=== PATIENT | male | born 1995 | race Caucasian/White ===

== ENCOUNTER 2025-08-15 20:15 | Emergency (ER) | payer OTHER, SELFPAY ==
[2025-08-15 20:17] VITALS: BP 164/84; PULSE 80; RESP 16; TEMP 36.8; O2SAT 99; BMI 31.5
--- NOTE | 2025-08-15 20:27 | EKG12_ITS ---
Test Reason : DYSRHYTHMIA Blood Pressure : */* mmHG Vent. Rate : 80 BPM Atrial Rate : 80 BPM P-R Int : 146 ms QRS Dur : 86 ms QT Int : 352 ms P-R-T Axes : 25 63 42 degrees QTcB Int : 405 ms Normal sinus rhythm Nonspecific T wave abnormality Abnormal ECG Confirmed by CAROLYNN MENDEZ, SHAWNA ([id number]), editor continuity and script ANNALISA ANDREW ([id number]) on 08/19/2025 8:36:36 AM Referred By: Confirmed By: SHAWNA PRADHAN MD
--- NOTE | 2025-08-15 20:27 | EX.ED.DYSGE1 ---
HPI History of Present Illness Chief Complaint: Dizziness Narrative Narrative: Patient is a 30-year-old male with no known significant past medical history who presents to the emergency department with a chief complaint of lightheadedness and not feeling well. 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 He states that he was driving down to [place] and started to feel unwell he states that he had nausea vomiting diarrhea on Tuesday and Tuesday which then resolved by Tuesday. He states that he is starting to feel better however then again yesterday he started to feel lightheaded and unwell again. In the triage noted states that he is dizzy after clarification and he is not dizzy. He denies any history of blood clots. PFSH PFSH Medical History no medical history Home Medications Medication Instructions Recorded Last Taken Type ondansetron 4 mg disintegrating 4 mg PO Q6H PRN nausea and 08/15/25 Unknown Rx tablet vomiting #20 tabs Allergy/AdvReac Type Severity Reaction Status Date / Time No Known Allergies Allergy Verified 08/15/25 20:18 Family History no significant family his Surgical History no surgical history Social History Smoking Status: Former smoker ROS ROS ED ROS Narrative Constitutional: Denies any fevers, chills, headaches Eyes: Denies double vision Cardiovascular: Complains of some chest pressure denies palpitations Respiratory: Denies coughing wheezing Abdomen: States that he had nausea vomiting diarrhea as noted above : Denies any urinary symptoms Neurological: Denies any numbness, weakness, tingling Musculoskeletal: Denies back pain Skin: Denies any rashes or lesions EXAM Physical Exam Narrative Exam Narrative: General: Patient was lying in bed rest comfortably did not appear to be acute distress Head: Atraumatic, normocephalic Eyes: PERRL bilaterally, EOMI bilaterally, no conjunctival injection noted, no horizontal or vertical nystagmus noted Neck: Soft, supple, trachea midline Cardiovascular: Regular rate and rhythm Respiratory: Clear to auscultation bilaterally Abdomen: Soft, nondistended, nontender to palpation Extremities: +5/5 strength noted in the bilateral upper and lower extremities, radial pulses +2/4 in the bilateral extremities Neurological: Patient following commands knew that he was at [facility] year 2024 NIH of 0 GCS 15 patient completed finger-nose testing bilaterally, difficulty Skin: Warm, dry, intact no rashes or lesions noted Const Vital Signs: 08/15/25 20:17 08/15/25 20:33 08/15/25 22:16 Temperature 98.2 F Temperature Source Temporal Pulse Rate 80 86 Respiratory Rate 16 Blood Pressure 164/84 H 127/56 H Blood Pressure Mean 110 79 Pulse Ox 99 100 98 Oxygen Delivery Method Room Air Room Air Room Air MDM MDM MDM Narrative Medical decision making narrative: Patient is a 30-year-old male who presents to the emergency department the chief complaint of lightheadedness and not feeling well overall. On the differential diagnose includes but not limited to ACS, pneumonia, pneumothorax, pulmonary embolism. Once workup is obtained and reviewed he will be reevaluated. Patient was given 2 L of IV fluid bolus. Patient CBC reviewed showed a white blood count is normal at 6.3, hemoglobin was stable 12.7, platelet count was noted to be 202. Patient sodium normal 140, potassium 3.8, creatinine was 0.93. Patient's troponin was noted to be normal at less than 6, delta troponin less than 6, EKG showed sinus rhythm with a rate of 80 bpm PA interval 146. Patient's proBNP was normal at less than 36, TSH normal 1.65. Patient CTA of his chest showed no evidence of pulmonary embolism. Patient was ambulated here in the emergency department tolerated this well no hypoxia no tachycardia. On reevaluation the patient he would like to go home at this point time. He is encouraged to return with worsening symptoms or concerns otherwise he is advised to follow-up his doctor in the outpatient setting all question concerns answered he is discharged home in stable condition. Significant other at bedside is also agreeable with this plan. Lab Data Labs: Laboratory Results - last 24 hr 08/15/25 08/15/25 20:38 22:25 WBC 6.3 RBC 4.58 L Hgb 12.7 L Hct 38.3 L MCV 83.6 MCH 27.7 MCHC 33.2 RDW Std Deviation 36.2 RDW Coeff of [place] 12.0 Plt Count 202 MPV 9.8 Immature Gran % (Auto) 0.200 Neut % (Auto) 47.0 Lymph % (Auto) 43.3 H [place] % (Auto) 6.5 Eos % (Auto) 2.7 Baso % (Auto) 0.3 Absolute Neuts (auto) 3.0 Absolute Lymphs (auto) 2.73 Nucleated RBC % 0 Sodium 140 Potassium 3.8 Chloride 103 Carbon Dioxide 25.6 Anion Gap 11 BUN 11 Creatinine 0.93 Estim Creat Clear Calc 137.53 Est GFR (MDRD) Non-Af 113 BUN/Creatinine Ratio 11.4 Glucose 145 H Calcium 9.7 Magnesium 2.1 Troponin T High Sens < 6 Troponin T Hi Sens 2 Hr < 6 NT pro BNP II < 36 TSH 1.650 Radiography Diagnostic Testing: Clinical Impression(s) from Imaging Studies Chest CTA 08/15/25 20:40 IMPRESSION: No pulmonary embolism. No acute chest abnormality. Reading Location: [facility] Discharge Plan Triage Chief Complaint: Dizziness ED Provider: Jim Bateman Dx/Rx/DC Orders Clinical Impression: Light-headedness, Nausea & vomiting, Diarrhea Prescriptions: New ondansetron 4 mg tablet,disintegrating 4 mg PO Q6H PRN (Reason: nausea and vomiting) Qty: 20 0RF Primary Care Provider: Ron Flores Referrals: Ron Flores MD [Primary Care Provider, Family Practice] Activity Restrictions/Additional Instructions: Your blood work did not show any acute findings your CT of your chest did not show any evidence of blood clots. Follow-up your doctor in outpatient setting. Return with worsening symptoms or any concerns. Continue to push fluids. Print Language: [place] Disposition Disposition: Home, Self Care
[2025-08-15] MEDS: 0.9% Normal Saline (1000mL) 1,000 ML 999 ML IV ×2 (20:32→21:43)
[2025-08-15 20:33] VITALS: O2SAT 100
--- NOTE | 2025-08-15 20:40 | CT_ITS ---
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 CONTRAST: Isovue 370 VOLUME: 100 mL One or more dose reduction techniques were used (e.g., Automated exposure control, adjustment of the mA and/or kV according to patient size, use of iterative reconstruction technique). RADIATION DOSE SUMMARY: CTDlvol: 16+ 15 mGy DLP: 548 mGycm FINDINGS: Peripheral soft tissues are unremarkable. Degenerative changes of the spine. The thyroid is unremarkable. The esophagus is normal in caliber. The upper abdomen is unremarkable. Thoracic aorta is normal in caliber. No mediastinal lymphadenopathy. No pulmonary artery filling defects. The lungs are clear. CT/CTA Chest W/WO Contrast IMPRESSION: No pulmonary embolism. No acute chest abnormality. Reading Location: [id number]
[2025-08-15 20:48] LABS: Hematocrit 38.3 % (40-54); Hemoglobin 12.7 g/dL (13.0-16.5); Immature Granulocytes Count 0.010 X10^3/uL (0.0-0.0); Mean Corp Hgb Conc 33.2 g/dL (32-36); Mean Corpuscular Volume 83.6 fL (80-94); Mean Platelet Vol. 9.8 fl (6.2-12.0); NRBC Flagged by Analyzer 0 % (0-5); Platelet Count 202 K/mm3 (150-450); RBC Distribution Width CV 12.0 % (11.6-14.6); RBC Distribution Width SD 36.2 fl (35.1-43.9); Red Blood Count 4.58 M/mm3 (4.6-6.2); White Blood Count 6.3 K/mm3 (4.4-11.0)
--- OUTSIDE RECORDS SUMMARY | 2025-08-15 21:12 | XMS RPT_ITS | CCD ---
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 Name Role Phone Unavailable Primary Care Provider TAVON Elise Attending TAVON [place] [facility] TAVON [place] Referring TAVON [place] [facility] UnavailTAVON [place] Referring TAVON [facility] Unavailab ba Medications Completed/Discontinued Medications Medication Drug Class(es) Dates Sig (Normalized) Sig (Original) benzoyl peroxide 0.05 mg/mg / erythromycin 0.03 mg/mg topical gel (1 source) Macrolide, Macrolide Antimicrobial Start: 11-03-2016 Erythromycin-Jesús zoyl Peroxide gel APPLY TO AFFECTED AREA AT BEDTIME 46.6 g 3 11/03/2016 Active Comment on above: APPLY TO AFFECTED AR EA AT BEDTIME ibuprofen 600 mg oral tablet (1 source) Nonsteroidal Anti-inflammatory Drug Start: 06-07-2014 take 1 tablet by mouth every six hours as needed ibuprofen 600 mg tablet Take 1 tablet by mouth every 6 hours as needed for Pain. 30 tablet 0 06/07/2014 Active Comment on above: Take 1 tablet by dede every 6 hours as needed for Pain. lidocaine hydrochloride 20 mg/ml mucous membrane topical solution (1 source) Antiarrhythmic, Amide Local Anesthetic Start: 01-27-2016 lidocaine viscous (LIDOCAINE VISCOUS) 2 % solution Indications: Sore throat Gargle and spit 10-15mLs every 3-4 hours as need for throat discomfort. 120 mL 0 01/27/2016 Active Comment on above: Gargle and spit 10-1 5mLs every 3-4 hours as need for throat discomfort. Problems Active Problems Problem Classification Problem Date Documented Da te Episodic/Chronic Alcohol-related disorders (1 source) Alcohol abuse, in remission; Translations: [History of alcohol abuse] Onset: 06-22-2025 Chronic Other nutritional; endocrine; and metabolic disorders (1 source) Body mass index (BMI) 31.0-31.9, adult; Translations: [Class 1 obesity with body mass index (BMI) of 31.0 to 31.9 in adult, unspecified obesity type, unspecified whether serious comorbidity present] Onset: 06-22-2025 Chronic Screening and history of mental health and substance abuse codes (1 source) Personal history of nicotine dependence; Translations: [Personal history of nicotine dependence] Onset: 06-22-2025 Episodic Thyroid disorders (2 sources) Nontoxic multinodular goiter; Translations: [Multiple thyroid nodules] Onset: 06-22-2025 Chronic Unclassified (1 source) Class 1 obesity with body mass index (BMI) of 31.0 to 31.9 in adult, unspecified obesity type, unspecified whether serious comorbidity present; Translations: [Class 1 obesity with body mass index (BMI) of 31.0 to 31.9 in adult, unspecified obesity type, unspecified whether serious comorbidity present] Onset: 06-22-2025 Past or Other Problems Problem Classification Problem Date Documented Da te Episodic/Chronic Appendicitis and other appendiceal conditions (1 source) Acute appendicitis; Translations: [Unspecified acute appendicitis] Onset: 04-11-2008 04-11-2008 Episodic Other skin disorders (1 source) Acne; Translations: [Acne, unspecified] Onset: 08-07-2012 08-07-2012 Episodic Superficial injury; contusion (1 source) Foreign body in hand; Translations: [Superficial foreign body of unspecified hand, initial encounter] Onset: 01-09-2014 01-09-2014 Episodic Results Test Name Value Interpretation Reference Range Facil ity US THYROID/PARATHYROIDon US THYROID/PARATHYROID * * *Final Report* * * DATE OF EXAM: Jul 06 2025 12:16PM MDU 1048 - US THYROID/PARATHYROID / PROCEDURE REASON: E04.2-Multiple thyroid nodules * * * * Physician Interpretation * * * * EXAMINATION: THYROID ULTRASOUND CLINICAL HISTORY: Multiple thyroid nodules TECHNIQUE: Sonography and Doppler imaging of the thyroid was performed. Images were obtained and stored in a permanent archive. MQ: UST_1 COMPARISON: Ultrasound thyroid 02/16/2021 RESULT: Right Lobe: 5.2 cm x 1.5 cm x 1.3 cm; homogeneous echogenicity, expected vascular flow. Left Lobe: 4.8 cm x 1.5 cm x 1.3 cm; homogeneous echogenicity, expected vascular flow. Isthmus: 0.4 cm The most suspicious thyroid nodule(s) (up to four) as below: NODULE 1: Location: Right mid Size: 1.0 x 0.9 x 0.6 cm. Previously 1.0 x 0.9 x 0.7 cm Characteristics: Composition: Solid or almost completely solid, 2 points Echogenicity: Hypoechoic, 2 points Shape: Zkpgo-zrar-mohr, 0 points Margin: Smooth, 0 points Echogenic foci (add points for all that apply): None, 0 points Internal vascularity: present Interval growth: Stable TI-RADS Category: TR4 ACR Recommendation: TI-RADS 4 nodule. Follow up imaging in 1, 2, 3 and 5 years is advised. There is been 1 other nodule less than 1 centimeter in size noted. No follow-up for this nodule is recommended IMPRESSION: Thyroid nodule(s) is/are present. Surveillance imaging is recommended for one or more nodules as detailed in the synoptic report. TI-RADS Category: TR4 ACR Recommendation: TI-RADS 4 nodule. Follow up imaging in 1, 2, 3 and 5 years is advised. It has already been 4 years since previous study ACR recommendations are strictly based on the size and imaging appearance at the time of the exam and do not consider stability or previous biopsy results. Senior Php Software Developer: LEVON Transcribe Date/Time: Jul 10 2025 4:36P Dictated by : ZEN WARREN DO This examination was interpreted and the report reviewed and electronically signed by: ZEN WARREN DO on Jul 10 2025 4:43PM EST [id number] N Normal [facility] CBC W Auto Differential pane l (Bld)on 06-22-2025 Basophils (Bld) [#/Vol] 10*3/uL Normal <0.11 [facility] Comment on above: Order Comment: Speci men Type: BLOOD SPECIMEN Ordering Facility: [facility] Address: [address] [place] [address] Performed By: #### 5 7021-8 #### [facility] CLIA [id number] [address] [place] [address] [place] Basophils/100 WBC (Bld) 0.4 % Normal [facility] Comment on above: Order Comment: Speci men Type: BLOOD SPECIMEN Ordering Facility: [facility] Address: [address] [place] [address] Performed By: #### 5 7021-8 #### [facility] CLIA [id number] [address] [place] [address] [place] Differential cell count method Nom (Bld) Auto Normal [facility] Comment on above: Order Comment: Speci men Type: BLOOD SPECIMEN Ordering Facility: [facility] Address: [address] [place] [address] Performed By: #### 5 7021-8 #### [facility] CLIA [id number] [address] [place] [address] [place] Eosinophils (Bld) [#/Vol] 0.09 10*3/uL Normal <0.46 [facility] Comment on above: Order Comment: Speci men Type: BLOOD SPECIMEN Ordering Facility: [facility] Address: [address] [place] [address] Performed By: #### 5 7021-8 #### [facility] CLIA [id number] [address] [place] [address] [place] Eosinophils/100 WBC (Bld) 2.0 % Normal [facility] Comment on above: Order Comment: Speci men Type: BLOOD SPECIMEN Ordering Facility: [facility] Address: [address] [place] [address] Performed By: #### 5 7021-8 #### [facility] CLIA [id number] [address] [place] [address] [place] Erythrocyte distribution width (RBC) [Ratio] 11.9 % Normal 11.5-15.0 [facility] Comment on above: Order Comment: Speci men Type: BLOOD SPECIMEN Ordering Facility: [facility] Address: [address] [place] [address] Performed By: #### 5 7021-8 #### [facility] CLIA [id number] [address] [place] [address] [place] Hematocrit (Bld) [Volume fraction] 43.3 % Normal 39.0-51.0 [facility] Comment on above: Order Comment: Speci men Type: BLOOD SPECIMEN Ordering Facility: [facility] Address: [address] [place] [address] Performed By: #### 5 7021-8 #### [facility] CLIA [id number] [address] [place] [address] [place] Hemoglobin (Bld) [Mass/Vol] 14.1 g/dL Normal 13.0-17.0 [facility] Comment on above: Order Comment: Speci men Type: BLOOD SPECIMEN Ordering Facility: [facility] Address: [address] [place] [address] Performed By: #### 5 7021-8 #### [facility] CLIA [id number] [address] [place] [address] [place] Immature granulocytes (Bld) [#/Vol] 10*3/uL Normal <0.10 [facility] Comment on above: Order Comment: Speci men Type: BLOOD SPECIMEN Ordering Facility: [facility] Address: [address] [place] [address] Performed By: #### 5 7021-8 #### [facility] CLIA [id number] [address] [place] [address] [place] Immature granulocytes/100 WBC (Bld) 0.2 % Normal [facility] Comment on above: Order Comment: Speci men Type: BLOOD SPECIMEN Ordering Facility: [facility] Address: [address] [place] [address] Performed By: #### 5 7021-8 #### [facility] CLIA [id number] [address] [place] [address] [place] Lymphocytes (Bld) [#/Vol] 1.52 10*3/uL Normal 1.00-4.00 [facility] Comment on above: Order Comment: Speci men Type: BLOOD SPECIMEN Ordering Facility: [facility] Address: [address] [place] [address] Performed By: #### 5 7021-8 #### [facility] CLIA [id number] [address] [place] [address] [place] Lymphocytes/100 WBC (Bld) 33.0 % Normal [facility] Comment on above: Order Comment: Speci men Type: BLOOD SPECIMEN Ordering Facility: [facility] Address: [address] [place] [address] Performed By: #### 5 7021-8 #### [facility] CLIA [id number] [address] [place] [address] [place] MCH (RBC) [Entitic mass] 27.5 pg Normal 26.0-34.0 [facility] Comment on above: Order Comment: Speci men Type: BLOOD SPECIMEN Ordering Facility: [facility] Address: [address] [place] [address] Performed By: #### 5 7021-8 #### [facility] CLIA [id number] [address] [place] [address] [place] MCHC (RBC) [Mass/Vol] 32.6 g/dL Normal 30.5-36.0 [facility] Comment on above: Order Comment: Speci men Type: BLOOD SPECIMEN Ordering Facility: [facility] Address: [address] [place] [address] Performed By: #### 5 7021-8 #### [facility] CLIA [id number] [address] [place] [address] [place] MCV (RBC) [Entitic vol] 84.6 fL Normal 80.0-100.0 [facility] Comment on above: Order Comment: Speci men Type: BLOOD SPECIMEN Ordering Facility: [facility] Address: [address] [place] [address] Performed By: #### 5 7021-8 #### [facility] CLIA [id number] [address] [place] [address] [place] Monocytes (Bld) [#/Vol] 0.44 10*3/uL Normal <0.87 [facility] Comment on above: Order Comment: Speci men Type: BLOOD SPECIMEN Ordering Facility: [facility] Address: [address] [place] [address] Performed By: #### 5 7021-8 #### [facility] CLIA [id number] [address] [place] [address] [place] Monocytes/100 WBC (Bld) 9.5 % Normal [facility] Comment on above: Order Comment: Speci men Type: BLOOD SPECIMEN Ordering Facility: [facility] Address: [address] [place] [address] Performed By: #### 5 7021-8 #### [facility] CLIA [id number] [address] [place] [address] [place] Neutrophils (Bld) [#/Vol] 2.53 10*3/uL Normal 1.45-7.50 [facility] Comment on above: Order Comment: Speci men Type: BLOOD SPECIMEN Ordering Facility: [facility] Address: [address] [place] [address] Performed By: #### 5 7021-8 #### [facility] CLIA [id number] [address] [place] [address] [place] Neutrophils/100 WBC (Bld) 54.9 % Normal [facility] Comment on above: Order Comment: Speci men Type: BLOOD SPECIMEN Ordering Facility: [facility] Address: [address] [place] [address] Performed By: #### 5 7021-8 #### [facility] CLIA [id number] [address] [place] [address] [place] Nucleated RBC (Bld) [#/Vol] 10*3/uL Normal <0.01 [facility] Comment on above: Order Comment: Speci men Type: BLOOD SPECIMEN Ordering Facility: [facility] Address: [address] [place] [address] Performed By: #### 5 7021-8 #### [facility] CLIA [id number] [address] [place] [address] [place] Nucleated RBC/100 WBC (Bld) [Ratio] 0.0 /100 WBC Normal [facility] Comment on above: Order Comment: Speci men Type: BLOOD SPECIMEN Ordering Facility: [facility] Address: [address] [place] [address] Performed By: #### 5 7021-8 #### [facility] CLIA [id number] [address] [place] [address] [place] Platelet mean volume (Bld) [Entitic vol] 10.8 fL Normal 9.0-12.7 [facility] Comment on above: Order Comment: Speci men Type: BLOOD SPECIMEN Ordering Facility: [facility] Address: [address] [place] [address] Performed By: #### 5 7021-8 #### [facility] CLIA [id number] [address] [place] [address] [place] Platelets (Bld) [#/Vol] 233 10*3/uL Normal 150-400 [facility] Comment on above: Order Comment: Speci men Type: BLOOD SPECIMEN Ordering Facility: [facility] Address: [address] [place] [address] Performed By: #### 5 7021-8 #### [facility] CLIA [id number] [address] [place] [address] [place] RBC (Bld) [#/Vol] 5.12 10*6/uL Normal 4.20-6.00 [facility] Comment on above: Order Comment: Speci men Type: BLOOD SPECIMEN Ordering Facility: [facility] Address: [address] [place] [address] Performed By: #### 5 7021-8 #### [facility] CLIA [id number] [address] [place] [address] [place] WBC (Bld) [#/Vol] 4.61 10*3/uL Normal 3.70-11.00 [facility] Comment on above: Order Comment: Speci men Type: BLOOD SPECIMEN Ordering Facility: [facility] Address: [address] [place] [address] Performed By: #### 5 7021-8 #### [facility] CLIA [id number] [address] [place] [address] OF [place] CNOVon 06-22-2025 CNOV Office Visit (FAMPWS ) ANDREA MCDONALD ([id number]) 1995 M Date Time Provider Department 06/22/25 8:20 AM [facility] During your visit today, we recorded the following information about you: Pulse Respiration Blood pressure Weight 71/minute 18/minute 126/78 97.8 kg Height 1.761 m Tavon Flores MD 06/22/2025 9:21 AM Signed Chief Complaint Patient presents with: Physical Recording using [employer] software for draft documentation of the visit was discussed with the patient/authorized packaging sales representative; all questions welcomed and answered. Patient/authorized packaging sales representative agreed to proceed HPI Andrea Mcdonald is a 30 year old male who presents here today for Above Complaints. Patient has been in good health without recent hospitalizations, ER visits. No concerns today. Annual Wellness Exam: - No new medical conditions or surgeries since last visit. - Family history: - Paternal grandmother had cancer. - Paternal grandfather had heart disease. - Andrea denies taking any medications. - No recent HIV or hepatitis C screening. Refusing screening today. - Andrea declined flu shot, tetanus booster, and HPV vaccine. - Overdue for thyroid ultrasound; previous ultrasound in 2020 showed right-sided nodules. - Weight has increased 5 lbs since last visit in 2022. - Andrea is attempting to eat healthier; no specific diet followed. - Andrea denies regular exercise. - Former smoker, quit in August 2021 after smoking 1 pack per day for 5 years. - Former heavy alcohol use, quit 7 years ago. - Andrea denies use of tobacco, vaping, or e-cigarettes. - Andrea denies use of other drugs. 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 - Lives with and father. Past medical history, appointments, medications, allergies reviewed. Previous Medical History PAST MEDICAL HISTORY Diagnosis Date Acne 08/07/2012 History of alcohol abuse History of tobacco use Multiple thyroid nodules 02/16/2021 repeat US in 1, 2, 3 and 5 years. Obesity Previous Surgical History PAST SURGICAL HISTORY Procedure Laterality Date APPENDECTOMY RPR UMBILICAL HERNIA < 5 YRS REDUCIBLE Hernia repair, umbilical <5yr Family History FAMILY HISTORY Problem Relation Age of Onset No Known Problems Mother No Known Problems Father No Known Problems Sister No Known Problems Brother No Known Problems Maternal Grandmother No Known Problems Maternal Grandfather Cancer Paternal Grandmother Heart disease Paternal Grandfather Patient Allergies ALLERGIES No Known Allergies Current Medications No current outpatient medications on file prior to visit. No current facility-administered medications on file prior to visit. Social History SOCIAL HISTORY[1] Review of Symptoms REVIEW OF SYSTEMS GENERAL: No weight loss, malaise or fevers HEENT: Negative for frequent or significant headaches, No changes in hearing or vision, no nose bleeds or other nasal problems NECK: Negative for lumps, goiter, pain and significant neck swelling RESPIRATORY: Negative for cough, hemoptysis, wheezing, COPD, dyspnea or shortness of breath CARDIOVASCULAR: Negative for chest pain, leg swelling, hypertension, CHF or palpitations GI: No nausea, vomiting, or diarrhea : No history of dysuria, frequency or incontinence MUSCULOSKELETAL: Negative for joint pain or swelling, back pain or muscle pain SKIN: Negative for lesions, rash, and itching PSYCH: Negative for sleep disturbance, mood disorder and recent psychosocial stressors HEMATOLOGY/LYMPHOLOGY : Negative for prolonged bleeding, bruising easily or swollen nodes ENDOCRINE: Negative for cold or heat intolerance, polyuria, polydipsia and goiter NEURO: No history of headaches, syncope, paralysis, seizures or tremors EXAM: BP 126/78 Pulse 71 Resp 18 Ht 176.1 cm (5' 9.33") Wt 97.8 kg (215 lb 9.6 oz) SpO2 96% BMI 31.54 kg/m? General Appearance: Well appearing, alert, in no acute distress, well-hydrated, well nourished.. Skin: Skin color, texture, turgor normal, no suspicious rashes or lesions. Head: Normocephalic, no masses, lesions, tenderness or abnormalities. Eyes: Anicteric sclera. Pupils are equally round and reactive to light. Extraocular movements are intact. . Ears: External ears normal, canals clear. Nose/Sinuses: Nares normal, septum midline, mucosa normal, no drainage or sinus tenderness. Oropharynx: Lips, mucosa, and tongue normal, teeth and gums normal, oropharynx normal. Neck: Supple, no adenopathy; thyroid symmetric, normal size, no bruits. Lungs: Lungs clear to auscultation. No wheezing, rhonchi, rales.. Heart: RRR without murmur, gallop, or rubs. No ectopy. Abdomen: Normal abdominal exam, Abdomen soft, non-tender. Bowel sounds normal. No masses, organomegaly. Extremities: No deformities, edema, (more content not included)... Normal [facility] Comprehensive metabolic 2000 panelon 06-22-2025 Albumin [Mass/Vol] 4.8 g/dL Normal 3.9-4.9 [facility] Comment on above: Order Comment: Speci men Type: BLOOD SPECIMEN Ordering Facility: [facility] Address: [address] [place] [address] Performed By: #### 2 4331-1, 88821-1, 3016-3 #### [facility] CLIA [id number] [address] [place] [address] [place] [address] [place] ALP [Catalytic activity/Vol] 81 U/L Normal 38-113 [facility] Comment on above: Order Comment: Speci men Type: BLOOD SPECIMEN Ordering Facility: [facility] Address: [address] [place] [address] Performed By: #### 2 4331-1, 51670-2, 3 #### [facility] CLIA [id number] [address] [place] [address] [place] ALT [Catalytic activity/Vol] 53 U/L Normal 10-54 [facility] Comment on above: Order Comment: Speci men Type: BLOOD SPECIMEN Ordering Facility: [facility] Address: [address] [place] [address] Performed By: #### 2 4331-1, , 3015-12 #### [facility] CLIA [id number] [address] [place] [address] [place] Anion gap [Moles/Vol] 11 mmol/L Normal 8-15 [facility] Comment on above: Order Comment: Speci men Type: BLOOD SPECIMEN Ordering Facility: [facility] Address: [address] [place] [address] Performed By: #### 2 4331-1, , 3015-12 #### [facility] CLIA [id number] [address] [place] [address] [place] AST [Catalytic activity/Vol] 28 U/L Normal 14-40 [facility] Comment on above: Order Comment: Speci men Type: BLOOD SPECIMEN Ordering Facility: [facility] Address: [address] [place], [place] [id number] Performed By: #### 2 4331-1, 81902-3, 3 #### [facility] CLIA [id number] [address] [place] [address] [place] Bilirubin [Mass/Vol] 0.3 mg/dL Normal 0.2-1.3 [facility] Comment on above: Order Comment: Speci men Type: BLOOD SPECIMEN Ordering Facility: [facility] Address: [address] [place] [address] Performed By: #### 2 4331-1, 24907-2, 3015-3 #### [facility] CLIA [id number] [address] [place] [address] [place] Calcium [Mass/Vol] 10.1 mg/dL Normal 8.5-10.2 [facility] Comment on above: Order Comment: Speci men Type: BLOOD SPECIMEN Ordering Facility: [facility] Address: [address] [place] [address] Performed By: #### 2 4331-1, 75608-9, 3015-3 #### [facility] CLIA [id number] [address] [place] [address] [place] Chloride [Moles/Vol] 103 mmol/L Normal 98-107 [facility] Comment on above: Order Comment: Speci men Type: BLOOD SPECIMEN Ordering Facility: [facility] Address: [address] [place] [address] Performed By: #### 2 4331-1, 00833-7, 3 #### [facility] CLIA [id number] [address] [place] [address] [place] CO2 [Moles/Vol] 25 mmol/L Normal 22-30 [facility] Comment on above: Order Comment: Speci men Type: BLOOD SPECIMEN Ordering Facility: [facility] Address: [address] [place] [address] Performed By: #### 2 4331-1, 42012-1, 3015-3 #### [facility] CLIA [id number] [address] [place], [place] [id number] [place] Creatinine [Mass/Vol] 0.90 mg/dL Normal 0.73-1.22 [facility] Comment on above: Order Comment: Speci men Type: BLOOD SPECIMEN Ordering Facility: [facility] Address: [address] [place], [place] [address] Performed By: #### 2 4331-1, 03630-0, 3016-3 #### [facility] CLIA [id number] [address] [place] [address] [place] eGFRcr SerPlBld CKD-EPI 2020 118 mL/min/1.73m??? Normal >=60 [facility] Comment on above: Order Comment: Anna shepard Type: BLOOD SPECIMEN Ordering Facility: [facility] Address: [address] [place] [address] Result Comment: Britni mated Glomerular Filtration Rate (eGFR) is calculated using the 2020 CKD-EPI creatinine equation. This equation utilizes serum creatinine, sex, and age as parameters. The creatinine assay has traceable calibration to isotope dilution-mass spectrometry. Refer to KDIGO guidelines for clinical interpretation. In patients with unstable renal function, e.g. those with acute kidney injury, the eGFR may not accurately reflect actual GFR. Performed By: #### 2 4331-1, 61266-9, 3015-3 #### [facility] CLIA [id number] [address] [place] [address] [place] Glucose [Mass/Vol] 91 mg/dL Normal 74-99 [facility] Comment on above: Order Comment: Anna shepard Type: BLOOD SPECIMEN Ordering Facility: [facility] Address: [address] [place] [address] Result Comment: The [place] Diabetes Association (ADA) provides guidance for cutoff values for fasting glucose and random glucose. The ADA defines fasting as no caloric intake for at least 8 hours. Fasting plasma glucose results between 100 to 125 mg/dL indicate increased risk for diabetes (prediabetes). Fasting plasma glucose results greater than or equal to 126 mg/dL meet the criteria for diagnosis of diabetes. In the absence of unequivocal hyperglycemia, results should be confirmed by repeat testing. In a patient with classic symptoms of hyperglycemia or hyperglycemic crisis, random plasma glucose results greater than or equal to 200 mg/dL meet the criteria for diagnosis of diabetes. Reference: Standards of Medical Care in Diabetes 2016, [place] Diabetes Association. Diabetes Care. 2016.39(Suppl 1). Performed By: #### 2 4331-1, 53812-1, 6-3 #### [facility] CLIA [id number] [address] [place] [address] [place] Potassium [Moles/Vol] 4.6 mmol/L Normal 3.7-5.1 [facility] Comment on above: Order Comment: Speci men Type: BLOOD SPECIMEN Ordering Facility: [facility] Address: [address] [place], [place] [address] Performed By: #### 2 4331-1, , 3 #### [facility] CLIA [id number] [address] [place] [address] [place] Protein [Mass/Vol] 7.8 g/dL Normal 6.3-8.0 [facility] Comment on above: Order Comment: Speci men Type: BLOOD SPECIMEN Ordering Facility: [facility] Address: [address] [place], [place] [address] Performed By: #### 2 4331-1, , 3 #### [facility] CLIA [id number] [address] [place] [address] [place] Sodium [Moles/Vol] 139 mmol/L Normal 136-144 [facility] Comment on above: Order Comment: Speci men Type: BLOOD SPECIMEN Ordering Facility: [facility] Address: [address] [place] [address] Performed By: #### 2 4331-1, , 3 #### [facility] CLIA [id number] [address] [place] [address] [place] Urea nitrogen [Mass/Vol] 15 mg/dL Normal 9-24 [facility] Comment on above: Order Comment: Speci men Type: BLOOD SPECIMEN Ordering Facility: [facility] Address: [address] [place] [address] Performed By: #### 2 4331-1, , 3 #### [facility] CLIA [id number] [address] [place] [address] [place] HbA1c (Bld)on 06-22-2025 Average glucose Estimated from glycated hemoglobin (Bld) [Mass/Vol] 103 mg/dL Normal [facility] Comment on above: Order Comment: Anna shepard Type: BLOOD SPECIMEN Ordering Facility: [facility] Address: [address] [place] [address] Result Comment: eAG: (Estimated average glucose) is a calculated value from HgbA1c and is packaging sales representative of the average blood glucose level in the last 2-3 month period. Performed By: #### 5 5454-3 #### [facility] CLIA [id number] [address] [place] [address] [place] HbA1c (Bld) [Mass fraction] 5.2 % Normal 4.3-5.6 [facility] Comment on above: Order Comment: Anna shepard Type: BLOOD SPECIMEN Ordering Facility: [facility] Address: [address] [place] [address] Result Comment: [place] Diabetes Association guidelines indicate that patients with HgbA1c in the range 5.7-6.4% are at increased risk for development of diabetes, and intervention by lifestyle modification may be beneficial. HgbA1c greater or equal to 6.5% is considered diagnostic of diabetes. Performed By: #### 5 5454-3 #### [facility] CLIA [id number] [address] [place], [place] [id number] [place] Lipid 1996 panelon Cholesterol [Mass/Vol] 241 mg/dL High <200 [facility] Comment on above: Order Comment: Anna shepard Type: BLOOD SPECIMEN Ordering Facility: [facility] Address: [address] [place] [address] Result Comment: <200 mg/dL, Desirable 200-239 mg/dL, Borderline high >239 mg/dL, High Performed By: #### 2 4331-1, 31910-5, 3016-3 #### [facility] CLIA [id number] [address] [place] [address] [place] Cholesterol in HDL [Mass/Vol] 51 mg/dL Normal >39 [facility] Comment on above: Order Comment: Carloschuckie shepard Type: BLOOD SPECIMEN Ordering Facility: [facility] Address: [address] [place] [address] Result Comment: 40-5 9 mg/dL, Acceptable >59 mg/dL, High: Negative risk factor for coronary heart disease <40 mg/dL, Low: Positive risk factor for coronary heart disease Performed By: #### 2 4331-1, 06937-8, 3015-3 #### [facility] CLIA [id number] [address] [place] [address] Cholesterol in LDL [Mass/Vol] 173 mg/dL High <100 [facility] Comment on above: Order Comment: Anna devyn Type: BLOOD SPECIMEN Ordering Facility: [facility] Address: [address] [place] [address] Result Comment: <100 mg/dL, Optimal 100-129 mg/dL, Near optimal/above optimal 130-159 mg/dL, Borderline high 160-189 mg/dL, High >189 mg/dL, Very high Secondary prevention optimal LDL Cholesterol levels are recommended to be <70 mg/dL LDL cholesterol is calculated using the Stark-NIH equation. Performed By: #### 2 4331-1, 49468-9, 3 #### [facility] CLIA [id number] [address] [place] [address] [facility] Cholesterol in LDL/Cholesterol in HDL [Mass ratio] 3.39 {ratio} High <2.54 [facility] Comment on above: Order Comment: Anna shepard Type: BLOOD SPECIMEN Ordering Facility: [facility] Address: [address] [place] [address] Result Comment: Luís pacheco: 1. National Cholesterol Education Program ATP III Guideline At-A-Glance Quick Desk Reference: National Heart, Lung, and Blood [place]. National Institutes of Health. 2001: NIH Publication No. 01-3305. 2. An International Atherosclerosis Society position paper: global recommendations for the management of dyslipidemia: executive summary, Atherosclerosis. 2014: 232(2):410-413. Performed By: #### 2 4331-1, 84113-6, 3015-3 #### [facility] CLIA [id number] [address] [place] [address] [place] Cholesterol in VLDL [Mass/Vol] 19 mg/dL Normal <30 [facility] Comment on above: Order Comment: Speci men Type: BLOOD SPECIMEN Ordering Facility: [facility] Address: [address] [place], [place] [address] Performed By: #### 2 4331-1, 96350-2, 3015-3 #### [facility] CLIA [id number] [address] [place], [place] [address] [place] Cholesterol non HDL [Mass/Vol] 190 mg/dL High <130 [facility] Comment on above: Order Comment: Speci men Type: BLOOD SPECIMEN Ordering Facility: [facility] Address: [address] [place] [address] Result Comment: <130 mg/dL, Optimal 130-159 mg/dL, Near optimal/above optimal 160-189 mg/dL, Borderline high 190-219 mg/dL, High >219 mg/dL, Very high Secondary prevention optimal non HDL Cholesterol levels are recommended to be <100 mg/dL Performed By: #### 2 4331-1, 15134-7, 3015-3 #### [facility] CLIA [id number] [address] [place] [address] [place] Cholesterol.total/C holesterol in HDL [Mass ratio] 4.73 {ratio} Normal <5.10 [facility] Comment on above: Order Comment: Speci men Type: BLOOD SPECIMEN Ordering Facility: [facility] Address: [address] [place], [place] [id number] Performed By: #### 2 4331-1, 65901-9, 3 #### [facility] CLIA [id number] [address] [place] [address] [place] FASTING TIME 13 hrs Normal [facility] Comment on above: Order Comment: Speci men Type: BLOOD SPECIMEN Ordering Facility: [facility] Address: [address] [place] [address] Performed By: #### 2 4331-1, 28444-2, 6-3 #### [facility] CLIA [id number] [address] [place] [address] [place] Triglyceride [Mass/Vol] 99 mg/dL Normal <150 [facility] Comment on above: Order Comment: Speci men Type: BLOOD SPECIMEN Ordering Facility: [facility] Address: [address] [place] [address] Result Comment: <150 mg/dL, Normal 150-199 mg/dL, Borderline high 200-499 mg/dL, High >499 mg/dL, Very high Performed By: #### 2 4331-1, 15564-4, 3015-3 #### [facility] CLIA [id number] [address] [place] [address] [place] TSH SerPl-aCncon 06-22-2025 TSH Qn 0.741 m[IU]/L Normal 0.270-4.200 [facility] Comment on above: Order Comment: Speci men Type: BLOOD SPECIMEN Ordering Facility: [facility] Address: [address] [place] [address] Performed By: #### 2 4331-1, 73839-4, 3 #### [facility] CLIA [id number] [address] [place] [address] [place] Encounters Encounter Date Encounter Type Care Provider Facility Start: 07-06-2025 ambulatory TAVON Bajwa acility:[facility] Start: 06-22-2025 End: 06-22-2025 ambulatory TAVON FLORES Facility:[facility] Start: 06-22-2025 Patient encounter procedure TAVON FLORES [facility] Start: 10-18-2022 Telephone encounter Arlyn elliott APRN.EXCAVATOR BACKHOE OPERATOR Work Phone: [facility] Comment on above: New Patient Start: 04-24-2010 Patient encounter status Arlyn Podlogar NUCLEAR CONTROL OPERATOR.EXCAVATOR BACKHOE OPERATOR Work Phone: [facility] Plan of Treatment Date Care Activity Detail Author Start: 10-03-2022 DEPRESSION ASSESSMENT DEPRESSION ASS ESSMENT [facility] Start: 06-03-2022 Influenza vaccination INFLUENZA (#1) [facility] Start: 10-17-2020 Urine microalbumin profile DTA P,TDAP,TD (7 - Td or Tdap) [facility] Start: 2013 HEPATITIS C SCREENING HEPATITIS C SC REENING [facility] Start: 2013 HIV SCREENING HIV SCREENING [facility] Start: 1995 COVID-19 VACCINE (#1) COVID-19 VACCI NE (#1) [facility] Immunizations Immunization Date Immunization Notes Care Provider [place] 06-07-2014 influenza, seasonal, injectable Arlyn Podlogar NUCLEAR CONTROL OPERATOR.EXCAVATOR BACKHOE OPERATOR Work Phone: [facility] 10-17-2010 meningococcal polysaccharide vaccine (MPSV4) Arlyn Podlogar NUCLEAR CONTROL OPERATOR.EXCAVATOR BACKHOE OPERATOR Work Phone: [facility] 10-17-2010 tetanus toxoid, redu gilberto diphtheria toxoid, and acellular pertussis vaccine, adsorbed Arlyn Podlogar NUCLEAR CONTROL OPERATOR.EXCAVATOR BACKHOE OPERATOR Work Phone: [facility] 05-02-2000 diphtheria, tetanus toxoids and acellular pertussis vaccine Arlyn Podlogar NUCLEAR CONTROL OPERATOR.EXCAVATOR BACKHOE OPERATOR Work Phone: [facility] 05-02-2000 measles, mumps and rubella virus vaccine Arlyn Podlogar NUCLEAR CONTROL OPERATOR.EXCAVATOR BACKHOE OPERATOR Work Phone: [facility] 05-02-2000 poliovirus vaccine, inactivated Arlyn Podlogar NUCLEAR CONTROL OPERATOR.EXCAVATOR BACKHOE OPERATOR Work Phone: [facility] 12-20-1996 diphtheria, tetanus toxoids and acellular pertussis vaccine Arlyn Podlogar NUCLEAR CONTROL OPERATOR.EXCAVATOR BACKHOE OPERATOR Work Phone: [facility] 12-20-1996 hepatitis B vaccine, pediatric or pediatric/adolescent dosage Arlyn Podlogar NUCLEAR CONTROL OPERATOR.EXCAVATOR BACKHOE OPERATOR Work Phone: [facility] 12-20-1996 trivalent poliovirus vaccine, live, oral Arlyn Podlogar NUCLEAR CONTROL OPERATOR.EXCAVATOR BACKHOE OPERATOR Work Phone: [facility] 09-06-1996 measles, mumps and rubella virus vaccine Arlyn Podlogar NUCLEAR CONTROL OPERATOR.EXCAVATOR BACKHOE OPERATOR Work Phone: [facility] 09-03-1996 haemophilus influenz ae type b vaccine, HbOC conjugate Arlyn Podlogar NUCLEAR CONTROL OPERATOR.EXCAVATOR BACKHOE OPERATOR Work Phone: [facility] 1995 diphtheria, tetanus toxoids and pertussis vaccine Arlyn Podlogar NUCLEAR CONTROL OPERATOR.EXCAVATOR BACKHOE OPERATOR Work Phone: [facility] 1995 haemophilus influenz ae type b vaccine, HbOC conjugate Arlyn Podlogar NUCLEAR CONTROL OPERATOR.EXCAVATOR BACKHOE OPERATOR Work Phone: [facility] 1995 diphtheria, tetanus toxoids and pertussis vaccine Arlyn Podlogar NUCLEAR CONTROL OPERATOR.EXCAVATOR BACKHOE OPERATOR Work Phone: [facility] 1995 haemophilus influenz ae type b vaccine, HbOC conjugate Arlyn Podlogar NUCLEAR CONTROL OPERATOR.EXCAVATOR BACKHOE OPERATOR Work Phone: [facility] 1995 trivalent poliovirus vaccine, live, oral Arlyn Podlogar NUCLEAR CONTROL OPERATOR.EXCAVATOR BACKHOE OPERATOR Work Phone: [facility] 1995 diphtheria, tetanus toxoids and pertussis vaccine Arlyn Podlogar NUCLEAR CONTROL OPERATOR.EXCAVATOR BACKHOE OPERATOR Work Phone: [facility] 1995 haemophilus influenz ae type b vaccine, HbOC conjugate Arlyn Podlogar NUCLEAR CONTROL OPERATOR.EXCAVATOR BACKHOE OPERATOR Work Phone: [facility] 1995 hepatitis B vaccine, pediatric or pediatric/adolescent dosage Arlyn Podlogar NUCLEAR CONTROL OPERATOR.EXCAVATOR BACKHOE OPERATOR Work Phone: [facility] 1995 trivalent poliovirus vaccine, live, oral Arlyn Podlogar NUCLEAR CONTROL OPERATOR.EXCAVATOR BACKHOE OPERATOR Work Phone: [facility] 1995 hepatitis B vaccine, pediatric or pediatric/adolescent dosage Arlyn Podlogar NUCLEAR CONTROL OPERATOR.EXCAVATOR BACKHOE OPERATOR Work Phone: [facility] Payers Date Payer Category Payer Unknown MMO MMO [employer] [id number] 2022-Present [phone] [address] [place] [address] PPO [id number] 2022 Unknown [id number] Social History Date Type Detail Facility Start: 02-23-2021 Tobacco smoking stat us [facility]IS Ex-smoker [facility] End: 10-03-2020 History of tobacco use Current smoker [facility] End: 10-03-2020 History of tobacco use Cigarette Smoker [facility] Start: 02-23-2021 Cigarettes smoked cu rrent (pack per day) - Reported 0.5 [facility] Start: 02-23-2021 Tobacco use and exposure Forme r smokeless tobacco user [facility] End: 10-03-2020 History of tobacco use Chews Tobacco [facility] Start: 05-19-2022 Alcohol intake Current drinke r of alcohol (finding) [facility] Start: 1995 Sex Assigned At Not on file [facility] Progress note 06-22-2025 Note Date & Type Note Facility 06-22-2025 Note HNO ID: [id number] Author: TAVON FLORES MD Service: ? Author Type: Physician Type: Progress Notes Filed: 06/22/2025 09:21 Note Text: Chief Complaint Patient presents with: Physical Recording using [employer] software for draft documentation of the visit was discussed with the patient/authorized packaging sales representative; all questions welcomed and answered. Patient/authorized packaging sales representative agreed to proceed HPI Andrea Mcdonald is a 30 year old male who presents here today for Above Complaints. Patient has been in good health without recent hospitalizations, ER visits. No concerns today. Annual Wellness Exam: - No new medical conditions or surgeries since last visit. - Family history: - Paternal grandmother had cancer. - Paternal grandfather had heart disease. - Andrea denies taking any medications. - No recent HIV or hepatitis C screening. Refusing screening today. - Andrea declined flu shot, tetanus booster, and HPV vaccine. - Overdue for thyroid ultrasound; previous ultrasound in 2020 showed right-sided nodules. - Weight has increased 5 lbs since last visit in 2022. - Andrea is attempting to eat healthier; no specific diet followed. - Andrea denies regular exercise. - Former smoker, quit in August 2021 after smoking 1 pack per day for 5 years. - Former heavy alcohol use, quit 7 years ago. - Andrea denies use of tobacco, vaping, or e-cigarettes. - Andrea denies use of other drugs. 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 - Lives with and father. Past medical history, appointments, medications, allergies reviewed. Previous Medical History PAST MEDICAL HISTORY Diagnosis Date Acne 08/07/2012 History of alcohol abuse History of tobacco use Multiple thyroid nodules 02/16/2021 repeat US in 1, 2, 3 and 5 years. Obesity Previous Surgical History PAST SURGICAL HISTORY Procedure Laterality Date APPENDECTOMY RPR UMBILICAL HERNIA < 5 YRS REDUCIBLE Hernia repair, umbilical <5yr Family History FAMILY HISTORY Problem Relation Age of Onset No Known Problems Mother No Known Problems Father No Known Problems Sister No Known Problems Brother No Known Problems Maternal Grandmother No Known Problems Maternal Grandfather Cancer Paternal Grandmother Heart disease Paternal Grandfather Patient Allergies ALLERGIES No Known Allergies Current Medications No current outpatient medications on file prior to visit. No current facility-administered medications on file prior to visit. Social History SOCIAL HISTORY[1] Review of Symptoms REVIEW OF SYSTEMS GENERAL: No weight loss, malaise or fevers HEENT: Negative for frequent or significant headaches, No changes in hearing or vision, no nose bleeds or other nasal problems NECK: Negative for lumps, goiter, pain and significant neck swelling RESPIRATORY: Negative for cough, hemoptysis, wheezing, COPD, dyspnea or shortness of breath CARDIOVASCULAR: Negative for chest pain, leg swelling, hypertension, CHF or palpitations GI: No nausea, vomiting, or diarrhea : No history of dysuria, frequency or incontinence MUSCULOSKELETAL: Negative for joint pain or swelling, back pain or muscle pain SKIN: Negative for lesions, rash, and itching PSYCH: Negative for sleep disturbance, mood disorder and recent psychosocial stressors HEMATOLOGY/LYMPHOLOGY: Negative for prolonged bleeding, bruising easily or swollen nodes ENDOCRINE: Negative for cold or heat intolerance, polyuria, polydipsia and goiter NEURO: No history of headaches, syncope, paralysis, seizures or tremors EXAM: BP 126/78 Pulse 71 Resp 18 Ht 176.1 cm (5' 9.33") Wt 97.8 kg (215 lb 9.6 oz) SpO2 96% BMI 31.54 kg/m? General Appearance: Well appearing, alert, in no acute distress, well-hydrated, well nourished.. Skin: Skin color, texture, turgor normal, no suspicious rashes or lesions. Head: Normocephalic, no masses, lesions, tenderness or abnormalities. Eyes: Anicteric sclera. Pupils are equally round and reactive to light. Extraocular movements are intact. . Ears: External ears normal, canals clear. Nose/Sinuses: Nares normal, septum midline, mucosa normal, no drainage or sinus tenderness. Oropharynx: Lips, mucosa, and tongue normal, teeth and gums normal, oropharynx normal. Neck: Supple, no adenopathy; thyroid symmetric, normal size, no bruits. Lungs: Lungs clear to auscultation. No wheezing, rhonchi, rales.. Heart: RRR without murmur, gallop, or rubs. No ectopy. Abdomen: Normal abdominal exam, Abdomen soft, non-tender. Bowel sounds normal. No masses, organomegaly. Extremities: No deformities, edema, skin discoloration, clubbing or cyanosis. Good capillary refill. . Peripheral Pulses: Normal. Neurologic: CN II-XII. Lymph Nodes: No cervical lymphadenopathy and No supraclavicular lymphadenopathy. Health Maintenance List Depression Screening Never done Anxiety Screening Never done (more content not included)... [facility] Note 10-19-2022 Telephone Encounter - Kerline Erickson RN - 10/19/2022 11:55 AM ESTTelephone Encounter - Rajan Bautista RN - 10/19/2022 9:41 AM ESTTelephone Encounter - Mallorie Nelson - 10/18/2022 4:31 PM EST Note Date & Type Note Facility 10-19-2022 Miscellaneous Notes Formattin g of this note might be different from the original. Patient returns call and provider message reviewed. scheduled for Establish care visit same day as patient. Kerline Erickson RN Left vm for patient to return call to nurse for provider message. Yes, we can take her on as a new patient. I do not have my own patient panel. Will need to ask Dr. Flores. Please forward for him to review. Arlyn Sellers APRN.ANURADHA Patient was previously under the care of Dr. Walker. He is scheduled to establish care with Arlyn Sellers on 11/22/22. He would like for his spouse to be seen by the same provider, however, she has not been a patient of the [facility] in the past. Please notify the patient if willing to accept his spouse under [facility] services. documented in this encounter [facility] Summary Purpose Family History No Family History Records FoundNo Family History Records Found Advance Directives No Advanced Directives Records FoundNo Advanced Directives Records Found Additional Source Comments Source Comments (unrecognize d section and content) In the event this informatio n is protected by the Federal Confidentiality of Alcohol and Drug Abuse Patient Records regulations: The Federal rules restrict any use of the information to criminally investigate or prosecute any alcohol or drug abuse patient.[facility] Reason for Visit (unrecogniz ed section and content) Reason Comments New Patient (unrecognized sect ion and content) No Status Records FoundNo Status Records Found INFORMATION SOURCE (unrecogn ized section and content) DATE CREATED AUTHOR 06/27/2025 [facility] DATE CREATED AUTHOR 'S ORGANIZ ATION 07/13/2025 [facility] FOR RECORDS PERTAINING TO PATIENTS WHO ARE OR HAVE BEEN ENROLLED IN A CHEMICAL DEPENDENCY/SUBSTANCEABUSE PROGRAM, SOME INFORMATION MAY BE OMITTED. This clinical summary was aggregated from multiple sources. Caution should be exercised in using it in the provision of clinical care. This summary normalizes information from multiple sources, and as a consequence, information in this document may materially change the coding, format and clinical context of patient data. In addition, data may be omitted in some cases. CLINICAL DECISIONS SHOULD BE BASED ON THE PRIMARY CLINICAL RECORDS. [facility], [facility]. provides no warranty or guarantee of the accuracy or completeness of information in this document.
[2025-08-15 21:15] LABS: Anion Gap 11 (5-15); BUN 11 mg/dL (4-19); BUN/Creat Ratio 11.4 RATIO (10-20); Calcium,Total 9.7 mg/dL (7.6-11.0); Carbon Dioxide 25.6 mmol/L (21.0-32.0); Chloride 103 mmol/L (98-108); Estimated Creatinine Clearance 137.53 ml/min (50-250); Glucose 145 mg/dL (70-99); Magnesium 2.1 mg/dL (1.5-2.2); Potassium 3.8 mmol/L (3.3-5.1)
[2025-08-15 21:27] LABS: Pro- Brain NATRIURETIC PEPTIDE < 36 pg/mL (<=450); Troponin T High Sensitivity < 6 ng/L (<=22)
[2025-08-15 22:16] VITALS: BP 127/56; PULSE 86; O2SAT 98
[2025-08-15 22:46] LABS: Troponin T High Sens 2 HR < 6 ng/L (<=22)
[2025-08-15 23:53] VITALS: BP 127/56; PULSE 86; RESP 18; TEMP 36.8; O2SAT 98
== END 2025-08-15 23:58 | disposition home or self-care (01) ==
PROVIDERS: Emergency Provider Emergency Medicine; PCP Family Medicine; Visit Provider Emergency Medicine
DX: R11.2 Nausea with vomiting, unspecified (principal); R42 Dizziness and giddiness; R19.7 Diarrhea, unspecified; Z87.891 Personal history of nicotine dependence
CPT/HCPCS: 71275; 80048; 83735; 83880; 84443; 84484; 85025; 93005; 96360; 96361; 99284; Q9967